=== PATIENT | male | born 1990 | race Caucasian/White ===

== ENCOUNTER 2022-05-03 21:17 | Emergency (ER) | payer OTHER ==
[~2022-05-03] VITALS: Ht 172.7 cm; Wt 144.2 kg
[~2022-05-03 21:17] MED LIST: ATEN25TA; LISI20TA; LISI40TA
[2022-05-03] MEDS ORDERED: NS IV 1000 ML 1,000 ML IV SCH (21:45)
[2022-05-03 21:47] LABS: BASOPHILS # (AUTO) 0.1 10^3/uL (0.0-0.1); BASOPHILS % (AUTO) 1 % (0-10); EOSINOPHILS # (AUTO) 0.3 10^3/uL (0.0-0.3); EOSINOPHILS % (AUTO) 2 % (0-10); HEMATOCRIT 46 % (40-54); HEMOGLOBIN 15.8 g/dL (13.3-17.7); LYMPHOCYTES # (AUTO) 3.6 10^3/uL (1.0-4.0); LYMPHOCYTES % (AUTO) 33 % (12-44); MEAN CORPUSCULAR HEMOGLOBIN 31 pg (25-34); MEAN CORPUSCULAR HGB CONC 34 g/dL (32-36); MEAN CORPUSCULAR VOLUME 91 fL (80-99); MEAN PLATELET VOLUME 11.6 fL (9.0-12.2); MONOCYTES % (AUTO) 9 % (0-12); NEUTROPHILS # (AUTO) 6.1 10^3/uL (1.8-7.8); NEUTROPHILS % (AUTO) 55 % (42-75); PLATELET COUNT 229 10^3/uL (130-400); WHITE BLOOD COUNT 11.1 10^3/uL (4.3-11.0)
--- NOTE | 2022-05-03 22:00 | Diagnostic Imaging Report ---
EXAM: Chest 1 view, AP/PA only INDICATION: Chest pain. COMPARISON: None. FINDINGS: Low lung volumes with perihilar consolidation. Normal heart size and central pulmonary vascularity. No pleural effusion or pneumothorax. No acute osseous finding. IMPRESSION: Low lung volumes with perihilar consolidation likely due to atelectasis. A pneumonitis cannot be excluded. Dictated by: Dictated on workstation # [id number]
[2022-05-03] MEDS ORDERED: KCL 20 MEQ TAB (K-DUR) PO ONE (22:41)
[2022-05-03 23:01] LABS: ALBUMIN 4.5 GM/DL (3.2-4.5); BILIRUBIN,TOTAL 0.3 MG/DL (0.1-1.0); CALCIUM 9.4 MG/DL (8.5-10.1); CREATININE SERUM 0.77 MG/DL (0.60-1.30); MAGNESIUM 2.1 MG/DL (1.6-2.4); TOTAL PROTEIN 8.2 GM/DL (6.4-8.2)
[2022-05-03 23:02] LABS: AMYLASE 58 U/L (25-125); LIPASE 20 U/L (8-78)
[2022-05-03 23:12] VITALS: BP 143/91
--- NOTE | 2022-05-03 23:12 | ED Cardiac General ---
History of Present Illness General Chief Complaint: Cardiac/General Problems Stated Complaint: RAPID HEART RATE Nursing Triage Note: tachycardia x30 min Source: patient, family Exam Limitations: no limitations History of Present Illness Date Seen by Provider: May 03, 2022 Time Seen by Provider: 21:30 Initial Comments 31-year-old male presents to the ED with reports of sudden onset tachycardia while he was eating dinner approximately 30 minutes prior to arrival. States his heart rate jumped to the 120s. IT is currently around 110. He denies diaphoresis , chest pain, and shortness of breath with the tachycardia. He also denies cough, fever, abdominal pain, and diarrhea. He does endorse some nausea. Past medical history includes hypertension. He currently takes lisinopril and HCTZ. He denies drug, alcohol, or tobacco use. Patient's mother later mentioned that patient may have been exposed to carbonmonoxide earlier today when working on an engine. She states the area was large and open on one side, but that he was on the other side where it was closed off. 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: No Allergies and Home Medications Allergies Coded Allergies: No Known Drug Allergies (Unverified , 05/10/11) Patient Home Medication List Home Medication List Reviewed: Yes Atenolol (Tenormin 25 Mg) 25 Mg Tablet, (Reported) Entered as Reported by: ROHAN MURRY on 05/10/11 003 Lisinopril (Zestril) 40 Mg Tablet, (Reported) Entered as Reported by: TIFFANIE HOWARD on 12/24/08 0744 Lisinopril (Zestril) 20 Mg Tablet, (Reported) Entered as Reported by: ROHAN MURYR on 05/10/1134 Review of Systems Review of Systems Constitutional: see HPI Past Fupeyjf-Upkcyx-Eirbih Hx Patient Social History Tobacco Use?: Yes Substance use?: No Alcohol Use?: Yes Alcohol Frequency: Once in a while Pt feels they are or have been: No Immunizations Up To Date First/Initial COVID19 Vaccinat: x2 Past Medical History Surgery/Hospitalization HX: kknee, htn Physical Exam Vital Signs Vital Signs - First Documented 05/03/22 21:21 Temp 36.6 Pulse 114 Resp 16 B/P (MAP) 155/103 (120) Pulse Ox 99 O2 Delivery Room Air Capillary Refill : Less Than 3 Seconds Height, Weight, BMI Height: 5'8" Weight: 260lbs. oz. 117.138800so; 48.00 BMI Method:Stated General Appearance: No Apparent Distress, WD/WN HEENT: Other (face appears flushed, but family states this is normal. His neck and ears appear flushed, which family states is not normal) Neck: Normal Inspection, Supple Respiratory: Lungs Clear, Normal Breath Sounds, No Accessory Muscle Use, No Respiratory Distress Cardiovascular: No Edema, No Gallop, No JVD, No Murmur, Tachycardia Gastrointestinal: Normal Bowel Sounds Extremity: Normal Inspection, Normal Range of Motion Neurologic/Psychiatric: Alert, Oriented x3, Normal Mood/Affect Skin: Warm/Dry, Erythema (neck, and ears) Progress/Results/Core Measures Results/Orders Lab Results Laboratory Tests Test 05/03/22 21:19 05/03/22 21:27 05/03/22 22:15 Range/Units Lab Scanned Report LAB Reports [id number] White Blood Count 11.1 H 4.3-11.0 10^3/uL Red Blood Count 5.09 4.30-5.52 10^6/uL Hemoglobin 15.8 13.3-17.7 g/dL Hematocrit 46 40-54 % Mean Corpuscular Volume 91 80-99 fL Mean Corpuscular Hemoglobin 31 25-34 pg Mean Corpuscular Hemoglobin Concent 34 32-36 g/dL Red Cell Distribution Width 12.4 10.0-14.5 % Platelet Count 229 130-400 10^3/uL Mean Platelet Volume 11.6 9.0-12.2 fL Immature Granulocyte % (Auto) 0 % Neutrophils (%) (Auto) 55 42-75 % Lymphocytes (%) (Auto) 33 12-44 % Monocytes (%) (Auto) 9 0-12 % Eosinophils (%) (Auto) 2 0-10 % Basophils (%) (Auto) 1 0-10 % Neutrophils # (Auto) 6.1 1.8-7.8 10^3/uL Lymphocytes # (Auto) 3.6 1.0-4.0 10^3/uL Monocytes # (Auto) 1.0 0.0-1.0 10^3/uL Eosinophils # (Auto) 0.3 0.0-0.3 10^3/uL Basophils # (Auto) 0.1 0.0-0.1 10^3/uL Immature Granulocyte # (Auto) 0.0 0.0-0.1 10^3/uL D-Dimer < 0.27 0.00-0.49 UG/ML Sodium Level 138 135-145 MMOL/L Potassium Level 3.0 L 3.6-5.0 MMOL/L Chloride Level 103 98-107 MMOL/L Carbon Dioxide Level 21 21-32 MMOL/L Anion Gap 14 5-14 MMOL/L Blood Urea Nitrogen 14 7-18 MG/DL Creatinine 0.77 0.60-1.30 MG/DL Estimat Glomerular Filtration Rate 124 BUN/Creatinine Ratio 18 Glucose Level 132 H 70-105 MG/DL Calcium Level 9.4 8.5-10.1 MG/DL Corrected Calcium 9.0 8.5-10.1 MG/DL Magnesium Level 2.1 1.6-2.4 MG/DL Total Bilirubin 0.3 0.1-1.0 MG/DL Aspartate Amino Transf (AST/SGOT) 21 5-34 U/L Alanine Aminotransferase (ALT/SGPT) 36 0-55 U/L Alkaline Phosphatase 49 40-136 U/L Troponin I < 0.028 <0.028 NG/ML Total Protein 8.2 6.4-8.2 GM/DL Albumin 4.5 3.2-4.5 GM/DL Amylase Level 58 25-125 U/L Lipase 20 8-78 U/L Carboxyhemoglobin 3.2 H 0.5-2.5 % My Orders Orders - MARIOLA,CONCEPCION R [employer]ING [employer] TENDER Ekg Tracing (05/03/22 21:24) Cbc With Automated Diff (05/03/22 21:36) Magnesium (05/03/22 21:36) Chest 1 View, Ap/Pa Only (05/03/22 21:36) Comprehensive Metabolic Panel (05/03/22 21:36) Monitor-Rhythm Ecg Trace Only (05/03/22 21:36) Ed Iv/Invasive Line Start (05/03/22 21:36) Fibrin Degradation Products (05/03/22 21:36) Troponin I Andrew (05/03/22 21:36) Ns Iv 1000 Ml (Sodium Chloride 0.9%) (05/03/22 21:45) Amylase (05/03/22 21:39) Lipase (05/03/22 21:39) Potassium Chloride (Tablet) (K Dur Table (05/03/22 22:41) Carboxyhemoglobin (05/03/22 22:15) Medications Given in ED Vital Signs/I&O 05/03/22 05/03/22 21:21 23:12 Temp 36.6 36.6 Pulse 114 90 Resp 16 16 B/P (MAP) 155/103 (120) 143/91 Pulse Ox 99 99 O2 Delivery Room Air Room Air Blood Pressure Mean: 120 Progress Progress Note #1: Time: 21:40 Progress Note Patient seen and evaluated, resting on bed, no acute distress. Based on exam and symptoms, concerned for arrythmia, PE, NV. electrolyte abnormality, cholecystitis, pancreatitis. Work up initiated, including CBC, CMP, coags, magnesium level, D-dimer, troponin, amylase, lipase, chest x-ray, EKG. Progress Note #2: Time: 22:15 Progress Note Patient's mother remembered that patient may have been exposed to carbon monoxide from working on an engine earlier in the day. States the area was open, but he was on the other end where it was partially enclosed. Will add on a carboxyhemoglobin level. Progress Note #3: Time: 22:55 Progress Note Labs, EKG, and chest x-ray reviewed. EKG shows frequent PACs. These were visible on the geospatial information scientist as well. When patient first arrived, they were more frequent, since the IV fluids, the PACs have greatly reduced in frequency. CBC shows slightly elevated WBC at 11.1. CMP shows low potassium of 3.0. Oral potassium dose ordered for here. Magnesium normal at 2.1. Glucose elevated at 132. Troponin negative. Amlyase and lipase normal. D-dimer negative. Carboxyhemoblogin slightly elevated at 3.2. Chest x-ray shows low lung volumes with perihilar consolidation likely due to atelectasis, although pneumonitis cannot be excluded. Patient denies any cough, shortness of breath, chest pain, abdominal pain, or fever. Will not treat as pneumonia at this time. Initial ECG Impression Date: May 03, 2022 Initial ECG Impression Time: 21:21 Initial ECG Rate: 112 Initial ECG Rhythm: S.Tach (with frequent PACs) Initial ECG Intervals: Normal Initial ECG Comparisson: No Previous ECG Available Diagnostic Imaging Diagonstic Imaging: Xray Plain Films/CT/US/NM/MRI: chest Comments [facility] [place], [facility]. [place], [place] NAME: ERIK CONNOR [facility] REC#: [id number] PT STATUS: REG ER : 1990 PHYSICIAN: CONCEPCION GARNETT APRN ADMIT DATE: 05/03/22/ER Signed Date of Exam:05/03/22 CHEST 1 VIEW, AP/PA ONLY EXAM: Chest 1 view, AP/PA only INDICATION: Chest pain. COMPARISON: None. FINDINGS: Low lung volumes with perihilar consolidation. Normal heart size and central pulmonary vascularity. No pleural effusion or pneumothorax. No acute osseous finding. IMPRESSION: Low lung volumes with perihilar consolidation likely due to atelectasis. A pneumonitis cannot be excluded. Dictated by: Dictated on workstation # [id number] Dict: 05/03/[id number] Trans: 05/03/222215 [facility] [id number] Interpreted by: TAJ AUGUSTIN MD Electronically signed by: TAJ AUGUSTIN MD 05/03/222215 Departure Impression Primary Impression: Tachycardia Disposition: 01 HOME, SELF-CARE Condition: Stable Departure-Patient Inst. Decision time for Depature: 23:00 Referrals: VINNIE MARTINEZ DO (PCP/Family) Primary Care Physician Patient Instructions: Tachycardia (DC) Add. Discharge Instructions: Increase your potassium intake in your diet. Follow up with your primary care provider. Return if you experience sudden, sustained elevated heart rate again, chest pain, shortness of breath, or any other new, concerning, or worsening symptoms. All discharge instructions reviewed with patient and/or family. Voiced understanding. CONCEPCION GARNETT APRN May 03, 2022 23:12
== END 2022-05-03 23:12 | disposition home or self-care (01) ==
LOC: EDUNIT# 21:17 → ER 21:19
DX: R00.0 Tachycardia, unspecified (principal); D72.829 Elevated white blood cell count, unspecified; E87.6 Hypokalemia; R73.9 Hyperglycemia, unspecified; I10 Essential (primary) hypertension; Z79.899 Other long term (current) drug therapy
CPT/HCPCS: 36415; 71045; 80053; 82150; 82375; 83690; 83735; 84484; 85025; 85379; 93005; 93041

== ENCOUNTER → 2022-07-11 | Outpatient (CLI) | payer OTHER | LOC: CARD 10:40 | PROVIDERS: ATTEND Internal Medicine Cardiovascular Disease | DX: R06.09 Other forms of dyspnea (principal) | CPT/HCPCS: 93306 ==

== ENCOUNTER → 2022-07-16 | Outpatient (CLI) | payer OTHER | LOC: CARD 13:18 | PROVIDERS: ATTEND Internal Medicine Cardiovascular Disease | DX: R06.09 Other forms of dyspnea (principal) ==

== ENCOUNTER → 2022-07-30 | Outpatient (CLI) | payer OTHER | LOC: CARD 13:23 | PROVIDERS: ATTEND Internal Medicine Cardiovascular Disease | DX: R06.09 Other forms of dyspnea (principal) ==